=== PATIENT | male | born 1985 | race American Indian/Alaskan Native ===

== ENCOUNTER 2017-04-07 23:33 | Emergency (ER) | payer SELFPAY ==
[2017-04-08 01:20] VITALS: BP 117/79
[2017-04-08] MEDS ORDERED: MOTRIN PO ONE (02:37)
== END 2017-04-08 03:00 | disposition left against medical advice (07) ==
LOC: ED 23:33
DX: K08.89 Other specified disorders of teeth and supporting structures (principal); R51 Headache; Z53.21 Procedure and treatment not carried out due to patient leaving prior to being seen by health care provider